=== PATIENT | male | born 1960 | race Caucasian/White ===

== ENCOUNTER → 2021-04-11 | Outpatient (CLI) | payer OTHER ==
--- NOTE | 2021-04-11 16:37 | CARD ---
MR#: [id number] Date of Study: 04/11/2021 Ordering Physician: CAMMY ABAD, Referring Physician: CAMMY ABAD Tech: Candi Maldonado [facility] APPROVED REPORT EXAM: Two-dimensional and M-mode echocardiogram with Doppler and color Doppler. Other Information Quality : GoodHR: 52bpm Rhythm : NSR INDICATION Palpitations RISK FACTORS Hypertension 2D DIMENSIONS RVDd4.3 (2.9-3.5cm)Left Atrium(2D)4.6 (1.6-4.0cm) IVSd0.8 (0.7-1.1cm)Aortic Root(2D)3.8 (2.0-3.7cm) LVDd5.8 (3.9-5.9cm)LVOT Diameter2.4 (1.8-2.4cm) PWd0.9 (0.7-1.1cm)LVDs4.0 (2.5-4.0cm) FS (%) 31.6 %SV98.4 ml Aortic Valve AoV Peak Rico.124.4cm/sAoV VTI26.5cm AO Peak GR.6.2mmHgLVOT Peak Rico.94.0cm/s AO Mean GR.3mmHgAVA (VMAX)3.39cm2 Mitral Valve MV E Jhkdehnt45.4cm/sMV DECEL [id number] MV A Vfqsjpvx05.0cm/sE/A Ratio1.1 Pulmonary Valve PV Peak Ezmdepdo964.0cm/s Tricuspid Valve TR P. Jaqzhyiz074bm/sTR Peak Gr.22mmHg LEFT VENTRICLE The Left Ventricle is borderline dilated. There is normal left ventricular wall thickness. The left v entricular systolic function is normal and the ejection fraction is within normal range. LV ejection fraction is 50 to 55%. There is normal LV segmental wall motion. The left ventricular diastolic funct ion and filling is normal for age. RIGHT VENTRICLE The right ventricle is borderline dilated. There is normal right ventricular wall thickness. The righ t ventricular systolic function is normal. ATRIA The left atrium size is normal. The right atrium is mildly dilated. The interatrial septum is intact with no evidence for an atrial septal defect or patent foramen ovale as noted on 2-D or Doppler imagi ng. AORTIC VALVE The aortic valve is normal in structure and function. Doppler and Color Flow revealed no significant aortic regurgitation. There is no significant aortic valvular stenosis. MITRAL VALVE The mitral valve is normal in structure and function. There is no evidence of mitral valve prolapse. There is no mitral valve stenosis. Doppler and Color-flow revealed mild mitral regurgitation. TRICUSPID VALVE The tricuspid valve is normal in structure and function. Doppler and Color Flow revealed mild tricusp id regurgitation. Estimated PAP 25 mmHg. There is no tricuspid valve stenosis. PULMONIC VALVE The pulmonary valve is normal in structure and function. Doppler and Color Flow revealed mild pulmoni c valvular regurgitation. GREAT VESSELS The aortic root is mildly enlarged. The ascending aorta is mildly dilated. The IVC is normal in size and collapses >50% with inspiration. PERICARDIAL EFFUSION There is no evidence of significant pericardial effusion. Critical Notification Critical Value: No <Conclusion> The Left Ventricle is borderline dilated. The left ventricular systolic function is normal and the ejection fraction is within normal range. LV ejection fraction is 50 to 55%. There is normal LV segmental wall motion. Doppler and Color Flow revealed no significant aortic regurgitation. There is no significant aortic valvular stenosis. Doppler and Color-flow revealed mild mitral regurgitation. Doppler and Color Flow revealed mild tricuspid regurgitation. Estimated PAP 25 mmHg. The aortic root is mildly enlarged. Signed by : Indra Glass MD Electronically Approved : 04/11/2021 16:37:11
== END ==
LOC: ECHO 12:36
PROVIDERS: ATTEND Internal Medicine Cardiovascular Disease
DX: I08.8 Other rheumatic multiple valve diseases (principal); R00.2 Palpitations
CPT/HCPCS: 93306; C8929